=== PATIENT | female | born 1975 | race Caucasian/White ===

== ENCOUNTER 2016-05-10 13:11 | Emergency (ER) | payer SELFPAY ==
[~2016-05-10] VITALS: Ht 167.6 cm; Wt 59.1 kg
[~2016-05-10 13:11] MED LIST: Cyclobenzaprine Hcl PO; MTH10T PO; Oxycodone Hcl PO; POLY17PO6 PO; PROM25TA14 PO; SENN-60 PO
[2016-05-10 13:24] VITALS: BP 134/86; PULSE 87; RESP 16; O2SAT 100
--- NOTE | 2016-05-10 14:21 | ED.REPORT ---
HPI-Preg Under 20 Weeks Date of Service May 10, 2016 ED Provider:Dr. Chris Sosa MD A 40 year old female presents to the ED complaining of intermittent abdominal cramping that began a few weeks ago. Patient is seeking a test and expresses concern about a miscarriage. Patient reports that she took one positive test one month ago and shortly after began to experiencing heavy vaginal bleeding and abdominal cramping. She states that her current cramps feel similar to her menstrual cycle cramps. Her menstrual cycles are often irregular. Patient has 3 children and experiencing spotting during her first . She denies any other medical complaints at this time. Nursing Notes Stated Complaint: SPOTTING//SHOULDER PAIN Chief Complaint: & Delivery Nursing Notes Reviewed: Yes Allergies: Coded Allergies: No Known Allergies (Unverified , 05/22/14) Verified per [facility] Report No Active Prescriptions or Reported Meds General Time Seen by Provider: 14:39 Chief Complaint Abdominal cramping Context: : Preg test pending Hx Obtained From: Patient Arrived By: Walk-in Onset Occurred: More than a week ago... (1 month) Symptom Duration: Since onset Progression Since Onset: Gradually improving Location: : Periumbilical Quality: Cramping Radiation: : None Severity: Current: Mild Severity: Maximum: Mild Associated with: Reports: Vaginal bleeding Pertinent Negative: Pt denies other symptoms Recent Healthcare: No recent doctor visit, No recent hospitalization Past Medical History Past Medical History Pancreatits Chronic knee pain Insomnia. Recurrent episodes of nausea and GERD. Past Surgical History None reported Smoking History Current Every Day Smoker Social History Other Social History: Good social support, Local resident Ambulatory Status Independent Review of Systems Constitutional: Denies: Chills, Fever GI: Reports: Abdominal pain (cramping ), Denies: Nausea, Vomiting Female: Reports: Vaginal bleeding - abnl, Denies: (Concern about possible miscarriage) Neurologic: Denies: Change LOC Complete sys rev & neg: except as marked. Physical Exam Initial Vital Signs Vital Signs (First) Date Time Temp Pulse Resp B/P Pulse Ox O2 Delivery O2 Flow Rate FiO2 05/10/16 13:24 36.4 87 16 134/86 100 Room Air Initial VS: Reviewed Head / Eyes: Atraumatic, Normocephalic, PERRL Neck: Supple, Non-tender, Full range of motion Extremities: Vascular intact, Neuro intact, No swelling, No tenderness Skin: Warm, Dry, No cyanosis Neurologic: Alert, Oriented, Nonfocal Psychiatric: Mood/affect normal, Behavior normal, Normal thought content General/Constitutional: Awake, Alert Abdomen: Atraumatic, Soft, Non-tender Female Genitourinary: Exam deferred : Exam deferred Interpretation & Diagnostics Lab Results Interpretation Lab Results Interpretation: Test Negative UA negative Re-Eval/Medical Decision Med Decision/Clinical Course Story sounds consistent with menses, her test is negative. She is offered a serum hCG however declines additionally is discussed if there is any other issues that she is seeking medical care for declines. She seems reassured by negative test and wants to go home. Return precaution given Re-Evaluation/Progress : Time of Eval: 14:46 Patient Status: Condition improved Re-Evaluation/Progress Note: Patient is rechecked. She is informed of her lab results and diagnosis. All of the patient's questions are addressed. She understands and agrees with the treatment plan. Patient feels safe at home and is simply seeking the test results. Counseled Regarding: Diagnosis, Lab results, Need for follow-up, When/why to return to ED Discharge & Departure Primary Impression: Pelvic cramping Disposition: Home Discharge Condition All VS Reviewed: Yes Condition: Stable Patient Instructions: Threatened Miscarriage (ED) Additional Instructions: Your urinalysis shows no sign of infection or at this time. Return to ER as needed if you think you are , but you have cramping or bleeding different than your regular menses. Follow-up with your primary care as needed. Referrals: [facility] (PCP) [facility] Scribe Attestation Portions of this note were transcribed by Magali Diaz. I, Dr. Sosa personally performed the history, physical exam and medical decision-making; I reviewed and confirmed the accuracy of the information in the transcribed note. Signed by: Magali Diaz, 05/10/16, 1500. Chris Sosa DO May 10, 2016 14:21 MAGALI DIAZ May 10, 2016 14:45
[2016-05-10 15:23] VITALS: BP 120/76; PULSE 96; RESP 16; O2SAT 100
== END 2016-05-10 15:24 | disposition home or self-care (01) ==
LOC: SED 13:11
DX: R10.33 Periumbilical pain (principal); K21.9 Gastro-esophageal reflux disease without esophagitis; F17.200 Nicotine dependence, unspecified, uncomplicated